=== PATIENT | female | born 1965 | race Caucasian/White ===

== ENCOUNTER 2017-03-13 20:33 | Emergency (ER) | payer OTHER ==
--- NOTE | ~2017-03-13 | CR71 ---
[facility]. [facility] A Service of [facility] & [facility] RADIOLOGY TEXT RESULTS PATIENT: NICCI RAMIREZ LOCATION: SED : 69 UNIT #: [id number] AGE: [address]: Marti Jones SEX: F ORDER DR: [id number] [place] [id number] E MR#: [id number] Acc #: [id number] NAME: NICCI RAMIREZ : 1965 SEX: F STUDY DATE/TIME: 03/13/2017 21:11 UNIT: SED ROOM: STUDY DESCRIPTION: CR Chest Single View Attending Physician: Marti Jones Pa-C Ordering Physician: Physician Non-Staff Primary Care Physician: Caden Ching M.D. MEDICAL IMAGING REPORT This report is preliminary unless electronic signature is present. EXAM Portable chest one-view 03/13/2017 HISTORY Cough for 3 weeks. FINDINGS The lungs are well expanded but clear. There is no consolidation or effusion or pneumothorax. Heart size is normal. IMPRESSION No acute disease and no interval change since 01/18/2015. Dictated by... Ramon Davis M.D. THIS IS AN ELECTRONICALLY VERIFIED REPORT Ramon Davis M.D. at 03/23/2017 4:01 PM TEV/mark TD: 03/14/2017 08:48 JOB #: [id number] MEDICAL IMAGING REPORT Page 1 of 1
[~2017-03-13 20:33] MED LIST: AMITRYPTYLINE PO; FIORINAL CAPSUL1 CAP; KEFLEX500 MG PO; KLONOPIN1 MG PO; LAMICTAL100 MG PO; LIDODERM PATCH; MEDROL4 MG/DOSE- PO; NEXIUM; PERCOCET10 PO; PHENERGAN25 M1 PO; RELPAX; REMERON PO; SEROQUEL400 MG PO
[2017-03-13] MEDS ORDERED: KLONOPIN (20:45)
[2017-03-13] MEDS ORDERED: SOMA (20:45)
[2017-03-13] MEDS ORDERED: OXYCONTIN (20:45)
[2017-03-13] MEDS ORDERED: PERCOCET (20:45)
[2017-03-13] MEDS ORDERED: FIORINAL 50-321 EACH (20:45)
[2017-03-13] MEDS ORDERED: SEROQUEL (20:45)
[2017-03-13] MEDS ORDERED: KEPPRA500 MG (20:46)
== END 2017-03-13 21:59 | disposition home or self-care (01) ==
LOC: SED 20:33
DX: J20.9 Acute bronchitis, unspecified (principal); G40.909 Epilepsy, unspecified, not intractable, without status epilepticus; F41.9 Anxiety disorder, unspecified; M54.9 Dorsalgia, unspecified; G89.29 Other chronic pain; F17.210 Nicotine dependence, cigarettes, uncomplicated; Z90.710 Acquired absence of both cervix and uterus; Z88.8 Allergy status to other drugs, medicaments and biological substances; Z91.013 Allergy to seafood
CPT/HCPCS: 71010; 94640; 99284

== ENCOUNTER 2017-04-06 19:46 | Emergency (ER) | payer OTHER ==
[~2017-04-06 19:46] MED LIST changes: +FIORINAL 50-321 EACH; +KEPPRA500 MG; +KLONOPIN; +OXYCONTIN; +PERCOCET; +SEROQUEL; +SOMA
== END 2017-04-06 22:30 | disposition home or self-care (01) ==
LOC: CED 19:46
DX: F11.129 Opioid abuse with intoxication, unspecified (principal); F13.129 Sedative, hypnotic or anxiolytic abuse with intoxication, unspecified; F32.9 Major depressive disorder, single episode, unspecified; F17.200 Nicotine dependence, unspecified, uncomplicated
CPT/HCPCS: 99284

== ENCOUNTER 2017-04-18 16:39 | Emergency (ER) | payer OTHER | END 2017-04-18 18:42 | disposition home or self-care (01) | LOC: SED 16:39 | DX: G40.909 Epilepsy, unspecified, not intractable, without status epilepticus (principal); F41.9 Anxiety disorder, unspecified; F17.200 Nicotine dependence, unspecified, uncomplicated; Z88.6 Allergy status to analgesic agent; Z88.1 Allergy status to other antibiotic agents; Z88.8 Allergy status to other drugs, medicaments and biological substances; Z91.013 Allergy to seafood | CPT/HCPCS: 99283 ==

== ENCOUNTER 2017-05-30 14:45 | Emergency (ER) | payer OTHER | END 2017-05-30 15:42 | disposition left against medical advice (07) | LOC: SED 14:45 | DX: Z53.21 Procedure and treatment not carried out due to patient leaving prior to being seen by health care provider (principal) ==

== ENCOUNTER 2017-05-30 21:20 | Emergency (ER) | payer OTHER ==
[~2017-05-30] VITALS: Ht 160 cm; Wt 49.0 kg
--- NOTE | ~2017-05-30 | CT2 ---
[facility] A Service of [facility] & [facility] RADIOLOGY TEXT RESULTS PATIENT: NICCI RAMIREZ LOCATION: [facility] : [birth year] UNIT #: [id number] AGE: [address]: Tyler Hammond MD SEX: F ORDER DR: [id number] [facility] [address] [place], [place] [address] [id number] MR#: [id number] Acc #: [id number] NAME: NICCI RAMIREZ : 1965 SEX: F STUDY DATE/TIME: 05/31/2017 0:30 UNIT: [facility] ROOM: STUDY DESCRIPTION: CT Abd and Pelv W Cont Attending Physician: Tyler Hammond M.D. Ordering Physician: Tyler Hammond M.D. Primary Care Physician: Caden Ching M.D. MEDICAL IMAGING REPORT This report is preliminary unless electronic signature is present EXAM CT abdomen and pelvis with IV contrast HISTORY Pelvic pain and cramping and bloating for 2 days. Vaginal bleeding. FINDINGS CT abdomen and pelvis was performed with IV contrast. This CT exam was performed with one or more of the following radiation dose reduction techniques: Automatic exposure control, adjustment of mA and/or kV according to patient size, and iterative reconstruction. CT ABDOMEN: [id number] intra- and extrahepatic biliary ductal dilatation. The common bile duct measures 12 mm in diameter. There is a questionable stone or debris in the distal common bile duct. The degree of biliary dilatation is greater than on CT 08/21/2015. Suggest correlation to serum bilirubin. Gallstones. Mild gallbladder distension. No hepatic mass. The spleen, pancreas, right kidney, and adrenal glands are normal. 1 mm incidental stone in the upper-pole left kidney. No bowel dilatation. Normal caliber abdominal aorta. CT PELVIS: Hysterectomy. No free fluid. No inflammatory stranding. No bowel dilatation. Urinary bladder is unremarkable. Mild chronic compression fracture of the superior endplate of L3 is stable. IMPRESSION 1. Increased intra- and extrahepatic biliary ductal dilatation compared to CT 08/21/2015. Probable stone or debris in the distal common bile duct. Suggest correlation to serum bilirubin and liver function tests. Findings raise suspicion of distal biliary duct obstruction. 2. Mild gallbladder distension. Small gallstones. 3. No acute findings in the remainder of the abdomen or pelvis. No free fluid or inflammatory changes. [facility]. [facility] A Service of [facility] & [facility] RADIOLOGY TEXT RESULTS PATIENT: NICCI RAMIREZ [id number] [birth year] UNIT #: [id number] AGE: [address]: Tyler Hammond MD SEX: F ORDER DR: 4. Hysterectomy. Dictated by... Ronny Lundberg M.D. THIS IS AN ELECTRONICALLY VERIFIED REPORT Ronny Lundberg M.D. at 05/31/2017 10:29 PM DFL/psc TD: 05/31/2017 12:04 JOB #: [id number] MEDICAL IMAGING REPORT Page 1 of 1 COPY
[2017-05-30 23:22] LABS: BASOPHIL% 0.5 % (0-2.5); EOSINOPHIL# 0.1 X10e3 (0-0.7); EOSINOPHIL% 1.3 % (0.0-7.0); HEMATOCRIT 38.3 % (35.0-45.0); HEMOGLOBIN 12.6 gm/dL (12.0-16.0); LYMPHOCYTE# 1.8 X10e3 (1.0-3.5); LYMPHOCYTE% 26.3 % (17.0-45.0); MEAN CELL VOLUME 99.7 FL (83-96); MEAN CORPUSCULAR HEMOGLOBIN 32.7 PG (28-34); MEAN CORPUSCULAR HGB CONC 32.8 g/dL (30-36); MEAN PLATELET VOLUME 8.3 FL (6.5-11.5); MONOCYTE# 0.8 X10e3 (0-1.0); MONOCYTE% 11.6 % (3.0-12.0); NEUTROPHIL# 4.2 X10e3 (1.5-7.1); NEUTROPHIL% 60.3 % (40-75); PLATELET COUNT 278 X10e3 (140-420); RED BLOOD COUNT 3.84 X10e (3.90-5.30); RED CELL DISTRIBUTION WIDTH 13.6 % (11.0-15.5); WHITE BLOOD COUNT 6.9 X10e3 (4.0-10.5)
[2017-05-30 23:46] LABS: BILIRUBIN, DIRECT 0.1 mg/dL (0.0-0.2); BILIRUBIN,INDIRECT 0.3 mg/dL (0.0-0.9); BILIRUBIN,TOTAL 0.4 mg/dL (0.2-2.0); BUN/CREATININE RATIO 21.42; CALCIUM SERUM 8.6 mg/dL (8.4-10.2); CREATININE SERUM 0.7 mg/dL (0.6-1.4); DIFF IND NO; POTASSIUM 4.2 mmol/L (3.5-5.1); PROTEIN TOTAL SERUM 7.4 g/dL (6.0-8.3)
[2017-05-31 01:11] LABS: URINE SOURCE CLEAN CATCH
[2017-05-31 01:16] LABS: URINE APPEARANCE CLEAR; URINE BILIRUBIN NEG (NEG); URINE BLOOD NEG (NEG); URINE COLOR YELLOW; URINE GLUCOSE NEG (NEG); URINE KETONE NEG (NEG); URINE LEUKOCYTE ESTERASE NEG (NEG); URINE NITRATE NEG (NEG); URINE PH 5.5 (5-8); URINE PROTEIN NEG (NEG); URINE SPECIFIC GRAVITY 1.038 (1.003-1.035); URINE UROBILINOGEN 0.2 MG/DL (NEG)
[2017-05-31 01:25] LABS: AMPHETAMINE NEG (NEG); BARBITURATES NEG (NEG); BENZODIAZEPINES POS (NEG); COCAINE NEG (NEG); MARIJUANA NEG (NEG); OPIATES POS (NEG); TRICYCLIC ANTIDEPRESSANTS POS (NEG); U METHADONE NEG (NEG)
[2017-05-31 01:26] LABS: CULTURE INDICATED? NO
== END 2017-05-31 02:10 | disposition home or self-care (01) ==
LOC: CED 21:20
PROVIDERS: Emergency Medicine
DX: R10.31 Right lower quadrant pain (principal); G89.29 Other chronic pain; F17.200 Nicotine dependence, unspecified, uncomplicated; Z88.1 Allergy status to other antibiotic agents; Z88.8 Allergy status to other drugs, medicaments and biological substances
CPT/HCPCS: 36415; 74177; 80048; 80076; 80307; 81003; 83690; 85025; 96361; 96374; 96375; 99284; J1885; J2405; Q9967